=== PATIENT | female | born 1960 | race Caucasian/White ===

== ENCOUNTER 2020-07-04 16:16 | Emergency (ER) | payer BC, OTHER ==
[2020-07-04] MEDS: Sodium Chloride 0.9% 1,000 ML IV SCH (16:31)
[2020-07-04] MEDS: Diltiazem 25 MG/5 ML SDV IVPUSH ONE (16:31)
[2020-07-04] MEDS: Diltiazem 100 MG in Sodium Chloride 0.9% 100 ML IV SCH (16:40)
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
[2020-07-04 16:50] LABS: CHLORIDE,CL 98 mEq/L (98-106); SODIUM,NA 137 mEq/L (136-145)
[2020-07-04 16:51] LABS: PTT,PARTIAL THROMBOPLSTIN TIME 25.2 SEC (23.2-32.3)
[2020-07-04] MEDS: Apixaban 5 MG Tab PO ONE (18:03)
[2020-07-04 18:18] VITALS: BP 150/60; PULSE 81
== END 2020-07-04 19:02 ==
LOC: CC.ED 16:16
DX: I48.91 Unspecified atrial fibrillation (principal); Z95.1 Presence of aortocoronary bypass graft; Z88.8 Allergy status to other drugs, medicaments and biological substances; Z91.040 Latex allergy status
CPT/HCPCS: 36415; 71045; 80053; 83735; 84443; 84484; 85025; 85610; 85730; 93005; 96365; 96366; 99285-25; A9270-GY; J3490; J7030; J7050